=== PATIENT | female | born 1990 | race Caucasian/White ===

== ENCOUNTER 2017-08-22 20:10 | Emergency (ER) | payer SELFPAY ==
[~2017-08-22] VITALS: Ht 162.6 cm; Wt 129.0 kg
[2017-08-22 20:14] VITALS: Ht 162.6 cm; Wt 129.0 kg
[2017-08-22] MEDS ORDERED: morphine 4 MG/ML VIAL IV STA (21:41)
[2017-08-22] MEDS ORDERED: ONDANSETRON 4 MG INJ IV STA (21:41)
[2017-08-22] MEDS ORDERED: SOD CHLORIDE 0.9% 1,000 ML IV STA (21:41)
[2017-08-22] MEDS ORDERED: ACETAMINOPHEN 500 MG TAB PO STA (21:41)
[2017-08-22 22:28] LABS: ABNORMAL IP MESSAGE 1; HEMOGLOBIN 13.1 g/dl (12.0-16.0); MEAN CORPUSCULAR HEMOGLOBIN 28.4 pg (29.0-33.0); MEAN CORPUSCULAR HGB CONC 33.6 g/dl (32.0-37.0); MEAN CORPUSCULAR VOLUME 84.6 fl (82.0-101.0); MEAN PLATELET VOLUME 10.8 fl (7.4-10.4); PLATELET COUNT 110 10^3/UL (140-415); RED BLOOD COUNT 4.61 10^6/ul (4.20-5.40); RED CELL DISTRIBUTION WIDTH 13.2 % (11.5-14.5); WHITE BLOOD COUNT 18.9 10^3/ul (4.8-10.8)
[2017-08-22 22:34] LABS: ADD UMIC YES; UR ASCORBIC ACID NEGATIVE (NEGATIVE); UR BILIRUBIN (Dip) NEGATIVE (NEGATIVE); UR BLOOD (Dip) 1+ mg/dL (NEGATIVE); UR CLARITY SLIGHTLY CLOUDY (CLEAR); UR COLOR YELLOW (YELLOW); UR GLUCOSE (Dip) NEGATIVE (NEGATIVE); UR KETONES (Dip) TRACE mg/dL (NEGATIVE); UR LEUKOCYTE ESTERASE (Dip) 1+ Leu/ul (NEGATIVE); UR MUCUS FEW /HPF (NONE SEEN); UR NITRITE (Dip) NEGATIVE (NEGATIVE); UR RBC 1 /HPF (0-5); UR SPECIFIC GRAVITY (Dip) 1.019 (1.003-1.030); UR SQUAMOUS EPITHELIAL CELL FEW /HPF (FEW); UR TOTAL PROTEIN (Dip) 2+ mg/dl (NEGATIVE); UR UROBILINOGEN (Dip) 1+ mg/dL (NEGATIVE)
[2017-08-22 22:34] LABS: POSITIVE DIFF @See below
[2017-08-22 22:41] LABS: ALBUMIN 4.2 g/dl (3.3-4.9); ALBUMIN/GLOBULIN RATIO 0.97; BILIRUBIN,INDIRECT 0.5 mg/dl (0-1.1); BILIRUBIN,TOTAL 0.5 mg/dl (0.2-1.3); CALCIUM 9.4 mg/dl (8.4-10.2); CREATININE 0.74 mg/dl (0.44-1.00); POTASSIUM 3.2 mmol/L (3.5-5.1); TOTAL PROTEIN 8.5 g/dl (6.1-8.1)
--- NOTE | 2017-08-22 22:56 | ERD ---
ER Documentation Chief Complaint Date/Time DATE: 08/22/17 TIME: 22:54 Chief Complaint non traumatic low back pain x 3 days, vomited today HPI 27-year-old female presents with nontraumatic lower back pain and she has had for 3 days and then today she began vomiting. The pain is 8 out of 10 and is throbbing in her lower back. She has been taking Motrin but it does not help and the last dose of Motrin was at 1 PM. She denies any dysuria hematuria or increased urinary frequency. Her last menstrual period was last month she says ROS All systems reviewed and are negative except as per history of present illness. Medications Home Meds Active Scripts Ondansetron (Ondansetron Odt) 4 Mg Tab.rapdis, 4 MG PO Q6H Y for NAUSEA AND/OR VOMITING, #20 TAB Prov:KAREN TOTH PA-C 08/22/17 Hydrocodone/Acetaminophen (Delta 5-325 Tablet) 1 Each Tablet, 1 TAB PO Q6H Y for PAIN, #20 TAB Prov:KAREN TOTH PA-C 08/22/17 Cephalexin* (Keflex*) 500 Mg Capsule, 500 MG PO QID for 7 Days, CAP Prov:KAREN TOTH PA-C 08/22/17 Allergies Allergies: Coded Allergies: No Known Allergy (Unverified , 08/22/17) PMhx/Soc Medical and Surgical Hx: pt denies Medical Hx, pt denies Surgical Hx Hx Alcohol Use: Yes Hx Substance Use: Yes (thc) Hx Tobacco Use: No FmHx Family History: No diabetes Physical Exam Vitals Vital Signs Date Time Temp Pulse Resp B/P Pulse Ox O2 Delivery O2 Flow Rate FiO2 08/22/17 22:31 100.1 08/22/17 20:14 100.1 107 20 133/88 100 Physical Exam INITIAL VITAL SIGNS: Reviewed by me GENERAL: Awake, alert and oriented x 4, well appearing, nontoxic, speaking in full sentences. No acute distress HEAD: Atraumatic NECK: Supple. No masses. Full range of motion. No meningismus. No midline tenderness. RESPIRATORY: Clear to auscultation bilaterally. Symmetric chest wall rise. No wheezing or rales. No accessory muscle use. CV: Regular rate and rhythm. No murmurs, rubs, or gallops. ABDOMEN: Soft, non-distended. Nontender. Negative [place]. Negative McBurneys point tenderness. Left-sided CVA tenderness. No guarding. No rebound. : Deffered. EXTREMITIES: No clubbing or cyanosis. No edema. Moving all extremities normally. BACK: No midline tenderness to palpation. No step-offs. Result Diagram: 08/22/17219908/22/172199 Results 24 hrs Laboratory Tests Test 08/22/17 21:58 08/22/17 22:00 Urine Color YELLOW Urine Clarity SLIGHTLY CLOUDY Urine pH 5.0 Urine Specific [place] 1.019 Urine Ketones TRACEmg/dL Urine Nitrite NEGATIVEmg/dL Urine Bilirubin NEGATIVEmg/dL Urine Urobilinogen 1+mg/dL Urine Leukocyte Esterase 1+Ariel/ul Urine Microscopic RBC 1/HPF Urine Microscopic WBC 3/HPF Urine Squamous Epithelial Cells FEW/HPF Urine Mucus FEW/HPF Urine Hemoglobin 1+mg/dL Urine Glucose NEGATIVEmg/dL Urine Total Protein 2+mg/dl White Blood Count 18.910^3/ul Red Blood Count 4.6110^6/ul Hemoglobin 13.1g/dl Hematocrit 39.0% Mean Corpuscular Volume 84.6fl Mean Corpuscular Hemoglobin 28.4pg Mean Corpuscular Hemoglobin Concent 33.6g/dl Red Cell Distribution Width 13.2% Platelet Count 35585^3/UL Mean Platelet Volume 10.8fl Neutrophils % % Lymphocytes % % Monocytes % % Eosinophils % % Basophils % % Nucleated Red Blood Cells % 0.0/100WBC Neutrophils # 10^3/ul Lymphocytes # 10^3/ul Monocytes # 10^3/ul Eosinophils # 10^3/ul Basophils # 10^3/ul Nucleated Red Blood Cells # 10^3/ul Sodium Level 137mmol/L Potassium Level 3.2mmol/L Chloride Level 102mmol/L Carbon Dioxide Level 25mmol/L Anion Gap 13 Blood Urea Nitrogen 9mg/dl Creatinine 0.74mg/dl Glucose Level 109mg/dl Calcium Level 9.4mg/dl Total Bilirubin 0.5mg/dl Direct Bilirubin 0.00mg/dl Indirect Bilirubin 0.5mg/dl Aspartate Amino Transf (AST/SGOT) 35IU/L Alanine Aminotransferase (ALT/SGPT) 60IU/L Alkaline Phosphatase 114IU/L Total Protein 8.5g/dl Albumin 4.2g/dl Globulin 4.30g/dl Albumin/Globulin Ratio 0.97 Lipase 58U/L Current Medications Medications (Trade) Dose Ordered Sig/Amandeep Route PRN Reason Start Time Stop Time Status Last Admin Dose Admin Sodium Chloride (NS) 1,000 ml @ 1,000 mls/hr Q1H STAT IV 08/22/17 21:41 08/22/17 22:40 DC 08/22/17 21:56 Morphine Sulfate (morphine) 4 mg ONCE STAT IV 08/22/17 21:41 08/22/17 21:42 DC 08/22/17 21:55 Ondansetron HCl (Zofran Inj) 4 mg ONCE STAT IV 08/22/17 21:41 08/22/17 21:42 DC 08/22/17 21:55 Acetaminophen 1000 mg 1,000 mg ONCE STAT PO 08/22/17 21:41 08/22/17 21:42 DC 08/22/17 21:55 Ceftriaxone Sodium (Rocephin) 50 ml @ 100 mls/hr ONCE ONCE IVPB 08/22/17 23:00 08/22/17 23:29 08/22/17 23:00 Procedures/MDM Patient presents with temperature 101.1 and tachycardia 107. She has lower back pain with nausea and vomiting. The differential diagnosis includes but is not limited to appendicitis, cholelithiasis, cholecystitis, pancreatitis, hepatitis, gastritis, peptic ulcer disease, bowel obstruction, diverticulitis, renal disease including stones, torsion, AAA, pyelonephritis, and others. She has no urinary symptoms however I do suspect this is possibly pyelonephritis or kidney stone. Her white blood cell count is elevated greater than 18 and urine is positive for infection. Chemistry panel unremarkable.Workup is consistent with pyelonephritis she was given Rocephin here and discharged with Keflex, Delta, and Zofran. Patient counseled regarding my diagnostic impression and care plan. Prior to discharge all questions answered. Pt agrees with treatment plan and understands strict return precautions. Pt is instructed to follow up with primary care provider within 24-48 hours. Precautionary instructions provided including instructions to return to the ER if not improving or for any worsening or changing symptoms or concerns. Departure Diagnosis: Primary Impression: Pyelonephritis Condition: Stable KAREN TOTH PA-C Aug 22, 2017 22:56
[2017-08-22] MEDS ORDERED: CEFTRIAXONE 1 GM/50 ML (PMX) 50 ML IVPB ONE (23:00)
[2017-08-22] MEDS ORDERED: CEPH-443 PO (23:13)
[2017-08-22] MEDS ORDERED: HYDR-906 PO (23:13)
[2017-08-22] MEDS ORDERED: ONDA4TAB14 PO (23:13)
--- NOTE | 2017-08-22 23:17 | RADRPT ---
PROCEDURE: CT ABDOMEN/PELVIS WITHOUT CONTRAST CLINICAL INDICATION: 27-year-old female with left flank and back pain. TECHNIQUE: The study was performed utilizing a [employer] VCT 64-slice CT scanner. Direct axia l sections were obtained through the abdomen and pelvis without the use of intravenous contrast mate rial. Sagittal and coronal reformations were obtained. One or more of the following dose reduction t echniques were utilized: automated exposure control, adjustment of the mA and/or kV according to pat ient's size or use of iterative reconstruction technique. The images were reviewed on a PACS workst [employer]. CTD/vol = 23.7 mGy; Total Exam DLP = 1467.7 mGy-cm. COMPARISON: None. FINDINGS: The lung bases are unremarkable. There is no evidence for significant pleural effusion. The liver has a normal size and contour. There is diffuse decreased density throughout the right lobe of the l iver consistent with fatty infiltration but without focal areas of abnormal density. No intrahepatic nor extrahepatic biliary ductal dilatation is seen. The gallbladder demonstrates no wall thickening nor pericholecystic fluid. No biliary stones are evident. The pancreas is without areas of abnormal attenuation. The spleen is identified and has a normal size without abnormal density. The adrenal glands are unremarkable. The kidneys are without abnormal density. No hydroureteronephrosis nor neph roureterolithiasis is evident. The urinary bladder contains urine. There is no evidence for bowel ob struction. The appendix is visualized and is without abnormal thickening or surrounding inflammator y reaction. The uterus as anteflexed. There is trace pelvic free fluid. The aortoiliac vessels are without aneurysmal dilatation. The osseous structures are intact. IMPRESSION: 1. Diffuse fatty infiltration of the right lobe of the liver. 2. No CT evidence for obstructive uropathy or renal calculi. 3. No CT evidence for appendicitis. 4. Trace pelvic free fluid. .Lg Guerrero MD, Date Time Electronically viewed and signed by .Lg Guerrero MD, MD on 08/22/2017 23:16 .Jh/
[2017-08-22 23:22] LABS: EOSINOPHILS # 0.2 10^3/ul (0.0-0.5); EOSINOPHILS % (M) 1 % (0.0-7.0); LYMPHOCYTES # 2.6 10^3/ul (0.8-2.9); MONOCYTE # 2.3 10^3/ul (0.3-0.9); MONOCYTES % (M) 12 % (0-11)
[2017-08-22 23:24] LABS: PLATELET ESTIMATE DECREASED
[2017-08-22 23:31] VITALS: BP 118/75; PULSE 76; RESP 20; TEMP 99.8
== END 2017-08-22 23:32 | disposition home or self-care (01) ==
LOC: FTE 20:10
DX: N12 Tubulo-interstitial nephritis, not specified as acute or chronic (principal)
CPT/HCPCS: 36415; 74176; 80053; 81001; 83690; 85025; 96374; 96375; 99285; J0696; J2270; J2405; J7030